=== PATIENT | female | born 1990 | race Two or more races ===

== ENCOUNTER 2018-01-18 20:50 | Emergency (ER) | payer MEDICAID ==
[~2018-01-18] VITALS: Ht 167.6 cm; Wt 125.0 kg
[2018-01-18] MEDS ORDERED: HYDROCODONE/ACETAMINOPHEN 10/325MG TABLET PO ONE (23:30)
[2018-01-18 23:59] VITALS: BP 155/81
== END 2018-01-19 | disposition home or self-care (01) ==
LOC: ER 20:50
DX: K02.9 Dental caries, unspecified (principal); Z87.891 Personal history of nicotine dependence; Z90.49 Acquired absence of other specified parts of digestive tract; Z98.890 Other specified postprocedural states
CPT/HCPCS: 99283

== ENCOUNTER 2019-01-15 00:34 | Emergency (ER) | payer MEDICAID ==
[~2019-01-15] VITALS: Ht 162.6 cm; Wt 122.0 kg
[2019-01-15] MEDS ORDERED: IBUPROFEN 600MG TABLET PO ONE (07:00)
[2019-01-15 07:28] VITALS: BP 123/79
== END 2019-01-15 07:29 | disposition home or self-care (01) ==
LOC: ER 01:25
DX: N76.4 Abscess of vulva (principal); R03.0 Elevated blood-pressure reading, without diagnosis of hypertension
CPT/HCPCS: 99283